=== PATIENT | female | born 1950 | race Caucasian/White ===

== ENCOUNTER 2016-10-27 08:00 | Outpatient (CLI) | payer BC ==
[2016-10-27 19:13] LABS: BASOPHILS # (AUTO) 0.1 10^3/uL (0.0-0.1); BASOPHILS % (AUTO) 0.9 %; EOSINOPHILS # (AUTO) 0.3 10^3/uL (0.0-0.7); EOSINOPHILS % (AUTO) 3.4 %; HCT - HEMATOCRIT 42.5 % (37.0-47.0); HGB - HEMOGLOBIN 13.8 g/dL (12.0-16.0); LYMPHOCYTES # (AUTO) 1.9 10^3/uL (1.5-3.5); LYMPHOCYTES % (AUTO) 22.9 %; MEAN CORPUSCULAR HEMOGLOBIN 28.4 pg (27.0-31.0); MEAN CORPUSCULAR HGB CONC 32.4 g/dL (32.0-36.0); MEAN CORPUSCULAR VOLUME 87.6 fL (81.0-99.0); MEAN PLATELET VOLUME 9.9 fL (7.9-10.8); MONOCYTES # (AUTO) 0.6 10^3/uL (0.0-1.0); NEUTROPHILS # (AUTO) 5.4 10^3/uL (1.5-6.6); NEUTROPHILS % (AUTO) 65.8 %; NUCLEATED RED BLOOD CELLS AUTO 0.1 /100WBC; RED BLOOD COUNT 4.86 10^6/uL (4.20-5.40); RED CELL DISTRIBUTION WIDTH 13.3 % (12.0-15.0); UNCORRECTED WHITE BLOOD COUNT 8.3 x10^3/uL; WHITE BLOOD COUNT 8.3 x10^3/uL (4.8-10.8)
[2016-10-27 19:50] LABS: ALBUMIN/GLOBULIN RATIO 1.3 (1.0-2.2); BILIRUBIN,TOTAL 0.3 mg/dL (0.2-1.0); BUN - BLOOD UREA NITROGEN 20 mg/dL (6-20); CALCIUM 9.6 mg/dL (8.5-10.3); CARBON DIOXIDE - CO2 29 mmol/L (21-32); CHLORIDE 103 mmol/L (101-111); CHOL/HDL RATIO 4.7 (<4.4); CHOLESTEROL 186 mg/dL; CREATININE 0.8 mg/dL (0.4-1.0); GFR - MDRD 72 (>89); GLUCOSE 90 mg/dL (70-100); HDL CHOLESTEROL 40 mg/dL; LDL/HDL RATIO 2.6 (<4.4); POTASSIUM 4.1 mmol/L (3.5-5.0); SODIUM 139 mmol/L (135-145); TOTAL PROTEIN 7.9 g/dL (6.7-8.2); TRIGLYCERIDES 222 mg/dL; VLDL CHOLESTEROL 44 mg/dL
[2016-10-27 20:15] LABS: HEMOGLOBIN A1C 0.6 g/dL
[2016-10-27 20:19] LABS: THYROID STIMULATING HORMONE 2.48 uIU/mL (0.34-5.60)
== END 2016-10-27 08:01 | disposition home or self-care (01) ==
LOC: LAB.WCP 08:00
PROVIDERS: ATTEND Family Medicine
DX: Z00.00 Encounter for general adult medical examination without abnormal findings (principal); E55.9 Vitamin D deficiency, unspecified; E03.9 Hypothyroidism, unspecified
CPT/HCPCS: 36415; 80053; 80061; 82306; 83036; 84439; 84443; 84481; 85025

== ENCOUNTER 2017-03-14 16:24 | Outpatient (CLI) | payer BC ==
[2017-03-14 19:10] LABS: BASOPHILS # (AUTO) 0.1 10^3/uL (0.0-0.1); BASOPHILS % (AUTO) 0.9 %; EOSINOPHILS # (AUTO) 0.3 10^3/uL (0.0-0.7); EOSINOPHILS % (AUTO) 3.7 %; HCT - HEMATOCRIT 41.4 % (37.0-47.0); HGB - HEMOGLOBIN 13.8 g/dL (12.0-16.0); LYMPHOCYTES # (AUTO) 1.9 10^3/uL (1.5-3.5); LYMPHOCYTES % (AUTO) 20.5 %; MEAN CORPUSCULAR HGB CONC 33.4 g/dL (32.0-36.0); MEAN CORPUSCULAR VOLUME 86.8 fL (81.0-99.0); MEAN PLATELET VOLUME 9.4 fL (7.9-10.8); MONOCYTES # (AUTO) 0.7 10^3/uL (0.0-1.0); NEUTROPHILS % (AUTO) 66.9 %; RED BLOOD COUNT 4.78 10^6/uL (4.20-5.40); RED CELL DISTRIBUTION WIDTH 13.2 % (12.0-15.0)
[2017-03-14 19:29] LABS: ALBUMIN/GLOBULIN RATIO 1.1 (1.0-2.2); BILIRUBIN,TOTAL 0.4 mg/dL (0.2-1.0); CALCIUM 9.4 mg/dL (8.5-10.3); CREATININE 0.7 mg/dL (0.4-1.0); POTASSIUM 4.1 mmol/L (3.5-5.0); TOTAL PROTEIN 8.1 g/dL (6.7-8.2)
[2017-03-14 19:41] LABS: THYROID STIMULATING HORMONE 0.38 uIU/mL (0.34-5.60)
== END 2017-03-14 16:25 | disposition home or self-care (01) ==
LOC: LAB.WCP 16:24
PROVIDERS: ATTEND Family Medicine
DX: R00.2 Palpitations (principal)
CPT/HCPCS: 36415; 80053; 84439; 84443; 84481; 85025

== ENCOUNTER 2017-06-03 09:31 | Outpatient (CLI) | payer BC | END 2017-06-03 09:32 | disposition home or self-care (01) | LOC: DI 09:31 | PROVIDERS: ATTEND Family Medicine | DX: R00.2 Palpitations (principal); I51.7 Cardiomegaly | CPT/HCPCS: 93306 ==

== ENCOUNTER 2018-01-02 15:57 | Outpatient (CLI) | payer BC | END 2018-01-02 15:58 | disposition home or self-care (01) | LOC: DI 15:57 | PROVIDERS: ATTEND Family Medicine | DX: Z53.9 Procedure and treatment not carried out, unspecified reason (principal) ==

== ENCOUNTER 2018-06-01 16:49 | Outpatient (CLI) | payer BC ==
--- NOTE | 2018-06-03 06:59 | Ultrasound Report ---
Reason: UTERINE PROLAPSE, ABDOMINAL PAIN Procedure Date: 06/01/2018 Accession Number: [id number] / [id number] Procedure: US - Abdomen Complete CPT Code: FULL RESULT: EXAM: ABDOMEN ULTRASOUND EXAM DATE: 06/01/2018 05:59 PM. CLINICAL HISTORY: Uterine prolapse, abdominal pain. COMPARISON: None. TECHNIQUE: Real-time scanning was performed with static images obtained. FINDINGS: Liver: Increased echotexture without gross focal lesion. 17.3 cm. Main portal vein flow: Hepatopetal. Gallbladder: Normal. No stones, wall thickening, or sonographic Miller's sign. Biliary System: Common bile duct measures 4 mm. No intrahepatic or extrahepatic ductal dilatation. Pancreas: Visualized portion is unremarkable but pancreas poorly seen. Kidneys: Right: 11.2 cm longitudinally. Normal. No contour-deforming mass, stones, or hydronephrosis. Left: 13 cm longitudinally. Normal. No contour-deforming mass, stones, or hydronephrosis. Spleen: 9.2 x 4.4 x 4.3 cm. Normal in size and echotexture. Aorta and Inferior Vena Cava: Unremarkable. Other: None. IMPRESSION: 1. No etiology for abdominal pain seen. 2. Fatty liver. RADIA
--- NOTE | 2018-06-03 06:59 | Ultrasound Report ---
Reason: UTERINE PROLAPSE, ABDOMINAL PAIN Procedure Date: 06/01/2018 Accession Number: [id number] / [id number] Procedure: US - Pelvic w/Transvaginal CPT Code: FULL RESULT: EXAM: PELVIC ULTRASOUND EXAM DATE: 06/01/2018 06:31 PM. CLINICAL HISTORY: Uterine prolapse, abdominal pain. COMPARISON: ABDOMEN COMPLETE 06/01/2018 5:59 PM. TECHNIQUE: Realtime transabdominal pelvic scan performed to identify the uterus and adnexa and as an overview of other pelvic structures, followed by transvaginal scan to provide greater detail of the uterus and adnexa, with static image documentation. FINDINGS: Uterus: 8.9 x 6.2 x 4.7 cm, volume 134.9 cc. Anteverted position. Normal overall size and echotexture. Masses: None. Endometrium: 6.9 mm. Mildly thickened endometrium for age. No discrete mass seen. Cervix: Unremarkable. Right Ovary: 2.4 x 1.5 x 1.9 cm, volume 3.6 cc. Normal echotexture and blood flow. Left Ovary: 2.8 x 2.5 x 1.8 cm, volume 6.6 cc. Normal echotexture and blood flow. Free Fluid: None. Other: None. IMPRESSION: 1. Mildly thickened 7 mm endometrium for patient's age and uncertain significance in the asymptomatic patient. No discrete endometrial mass seen. This could reflect early hyperplasia. Gynecologic followup suggested. 2. Otherwise unremarkable pelvic ultrasound. RADIA
== END 2018-06-01 16:50 | disposition home or self-care (01) ==
LOC: DI 16:49
PROVIDERS: ATTEND Family Medicine
DX: R93.89 Abnormal findings on diagnostic imaging of other specified body structures (principal); K76.0 Fatty (change of) liver, not elsewhere classified; R10.11 Right upper quadrant pain
CPT/HCPCS: 76700; 76830; 76856

== ENCOUNTER 2018-07-20 08:00 | Outpatient (CLI) | payer BC ==
[2018-07-20 19:11] LABS: BASOPHILS # (AUTO) 0.1 10^3/uL (0.0-0.1); BASOPHILS % (AUTO) 0.6 %; EOSINOPHILS # (AUTO) 0.3 10^3/uL (0.0-0.7); EOSINOPHILS % (AUTO) 3.7 %; HGB - HEMOGLOBIN 12.5 g/dL (12.0-16.0); LYMPHOCYTES # (AUTO) 1.7 10^3/uL (1.5-3.5); LYMPHOCYTES % (AUTO) 19.8 %; MEAN CORPUSCULAR HEMOGLOBIN 29.7 pg (27.0-31.0); MEAN CORPUSCULAR VOLUME 87.3 fL (81.0-99.0); MEAN PLATELET VOLUME 8.8 fL (7.9-10.8); MONOCYTES # (AUTO) 0.7 10^3/uL (0.0-1.0); MONOCYTES % (AUTO) 7.8 %; NEUTROPHILS # (AUTO) 5.8 10^3/uL (1.5-6.6); NEUTROPHILS % (AUTO) 68.1 %; PLT - PLATELET COUNT 302 10^3/uL (130-450); RED BLOOD COUNT 4.22 10^6/uL (4.20-5.40); RED CELL DISTRIBUTION WIDTH 13.5 % (12.0-15.0); WHITE BLOOD COUNT 8.5 x10^3/uL (4.8-10.8)
[2018-07-20 19:30] LABS: ALBUMIN 3.9 g/dL (3.2-5.5); BILIRUBIN,TOTAL 0.4 mg/dL (0.2-1.0); CALCIUM 9.2 mg/dL (8.5-10.3); CREATININE 0.7 mg/dL (0.4-1.0); TOTAL PROTEIN 7.7 g/dL (6.7-8.2)
[2018-07-20 19:42] LABS: THYROID STIMULATING HORMONE 0.63 uIU/mL (0.34-5.60)
[2018-07-20 19:43] LABS: FREE T4 (FREE THYROXINE) 1.16 ng/dL (0.58-1.64)
[2018-07-20 20:31] LABS: HB2 TOTAL 13.2 g/dL; HEMOGLOBIN A1C 0.53 g/dL; HEMOGLOBIN A1C % 5.8 % (4.6-6.2)
[2018-07-21 13:11] LABS: HEPATITIS C ANTIBODY NON-REACTIVE (NON-REACTIVE)
[2018-07-21 13:12] LABS: HEPATITIS B SURFACE ANTIGEN NON-REACTIVE (NON-REACTIVE)
== END 2018-07-20 23:59 | disposition home or self-care (01) ==
LOC: LAB.WCP 08:00
PROVIDERS: ATTEND Family Medicine
DX: R74.8 Abnormal levels of other serum enzymes (principal); E66.9 Obesity, unspecified; E03.9 Hypothyroidism, unspecified; R00.2 Palpitations
CPT/HCPCS: 36415; 80053; 80061; 83036; 83721; 84439; 84443; 84481; 85025; 86317; 86704; 86709; 86803; 87340

== ENCOUNTER 2019-02-03 17:35 | Emergency (ER) | payer BC ==
--- NOTE | 2019-02-03 17:53 | ED Physician Documentation ---
PD HPI CHEST PAIN - Stated complaint Stated Complaint: CP/NAUSEA/VERTIGO - Chief complaint Chief Complaint: Cardiac - History obtained from History obtained from: Patient - History of Present Illness Timing - onset: How many hours ago (1-2) Timing - onset during: Light activity Timing - duration: Hours Timing - details: Abrupt onset, Still present Quality: Sharp, Pain Location: Left chest, Left neck (She started actually with pain in the left side of the neck anteriorly associated with a feeling of dizziness and left facial numbness. The facial numbness improved. The neck pain traveled down into the left chest. It was not pleuritic. She denied any lightheadedness nor she near syncope. She had not had any similar prior episodes. There is no injury or abrupt motion at the time of the onset.) Radiation: No: Back, Abdominal Improved by: No: Rest Worsened by: No: Inspiration, Movement, Palpation Associated symptoms: Nausea. No: Shortness of air, Diaphoresis, Feeling faint / dizzy, Palpitations Similar symptoms before: Has not had sx before Recently seen: Not recently seen Review of Systems Constitutional: denies: Fever Nose: denies: Rhinorrhea / runny nose, Congestion Throat: denies: Sore throat Respiratory: denies: Cough GI: reports: Nausea. denies: Abdominal Pain, Vomiting, Diarrhea Musculoskeletal: denies: Back pain Neurologic: denies: Focal weakness, Near syncope, Headache PD PAST MEDICAL HISTORY - Past Medical History Past Medical History: Yes Cardiovascular: Deep vein thrombosis (years ago and Rx with Coumadin for 5 months and improved. ) Respiratory: None Neuro: None Endocrine/Autoimmune: HyPOthyroidism GI: None - Past Surgical History Past Surgical History: Yes - Allergies Allergies/Adverse Reactions: Allergies Allergy/AdvReac Type Severity Reaction Status Date / Time amoxicillin [From Augmentin] AdvReac Rash Verified 02/03/19 17:42 clavulanic acid AdvReac Rash Verified 02/03/19 17:42 [From Augmentin] - Social History Does the pt smoke?: No Smoking Status: Never smoker Does the pt drink ETOH?: Yes - Immunizations Immunizations are current?: Yes - POLST Patient has POLST: No PD ED PE NORMAL - Vitals Vital signs reviewed: Yes - General General: Alert and oriented X 3, No acute distress, Well developed/nourished - HEENT HEENT: PERRL, EOMI, Moist mucous membranes, Pharynx benign - Neck Neck: Supple, no meningeal sign, No adenopathy, No bruit - Cardiac Cardiac: RRR, No murmur - Respiratory Respiratory: Clear bilaterally - Abdomen Abdomen: Soft, Non tender - Back Back: No CVA TTP - Derm Derm: Normal color, Warm and dry - Extremities Extremities: No tenderness to palpate, Normal ROM s pain, No edema, No calf tenderness / cord - Neuro Neuro: Alert and oriented X 3, front office assistant 2-12 intact, No motor deficit, No sensory deficit, Normal speech Eye Opening: Spontaneous Motor: Obeys Commands Verbal: Oriented GCS Score: 15 Results - Vitals Vitals: Vital Signs - 24 hr 02/03/19 02/03/19 02/03/19 17:42 17:51 18:33 Temperature 36.8 C Heart Rate 72 76 71 Respiratory 15 12 12 Rate Blood Pressure 193/83 H 196/77 H 137/80 H O2 Saturation 100 100 97 02/03/19 02/03/19 02/03/19 19:45 21:00 22:06 Temperature 36.5 C Heart Rate 66 65 66 Respiratory 14 14 14 Rate Blood Pressure 152/82 H 139/66 H 124/82 H O2 Saturation 97 92 94 Oxygen O2 Source Room air - EKG (time done) 17:42 Rate: Rate (enter#) (72) Rhythm: NSR [place]: Normal Intervals: Normal LA QRS: Normal Ischemia: Normal ST segments. No: ST elevation c/w ischemia, ST depression - Labs Labs: Laboratory Tests 02/03/19 02/03/19 02/03/19 18:28 18:28 18:28 WBC 7.6 RBC 4.50 Hgb 12.7 Hct 40.1 MCV 89.1 MCH 28.2 MCHC 31.7 L RDW 13.5 Plt Count 253 MPV 10.4 Neut # (Auto) 5.3 Lymph # (Auto) 1.6 Pettis # (Auto) 0.4 Eos # (Auto) 0.2 Baso # (Auto) 0.0 Absolute Nucleated RBC 0.00 Nucleated RBC % 0.0 ESR 17 Sodium 141 Potassium 3.4 L Chloride 104 Carbon Dioxide 26 Anion Gap 11.0 BUN 19 Creatinine 0.8 Estimated GFR (MDRD) 72 L Glucose 165 H Calcium 9.1 Magnesium 2.3 Total Bilirubin 0.5 AST 22 ALT 23 Alkaline Phosphatase 91 Troponin I High Sens Total Protein 7.9 Albumin 4.1 Globulin 3.8 Albumin/Globulin Ratio 1.1 Lipase 26 TSH Thyroxine (T4) 02/03/19 02/03/19 18:28 18:28 WBC RBC Hgb Hct MCV MCH MCHC RDW Plt Count MPV Neut # (Auto) Lymph # (Auto) Pettis # (Auto) Eos # (Auto) Baso # (Auto) Absolute Nucleated RBC Nucleated RBC % ESR Sodium Potassium Chloride Carbon Dioxide Anion Gap BUN Creatinine Estimated GFR (MDRD) Glucose Calcium Magnesium Total Bilirubin AST ALT Alkaline Phosphatase Troponin I High Sens 3.9 Total Protein Albumin Globulin Albumin/Globulin Ratio Lipase TSH 1.82 Thyroxine (T4) 9.79 - Rads (name of study) chest and neck angio Radiology: Prelim report reviewed (The chest STEWART was normal without out any signs of dissection. Mild atelectatic changes noted in the bases. The neck and 0 portion showed clear internal carotid arteries. There was some beam hardening artifact in the vertebral areas so dissection could not be fully excluded in those spots.), Final report received, See rad report PD MEDICAL DECISION MAKING - ED course Complexity details: reviewed results, re-evaluated patient (Given the patient's pain in the anterior part of the neck down into the chest, I think the chest and neck angios results are adequate even though the vertebral vessels were not well visualized due to beam hardening and artifact. The patient's EKG and troponin are normal. Her sed rate is normal excluding vasculitis type concerns. There is no pulmonary component notable. At this point I feel it reasonable to say we have excluded significant processes. She is feeling better with out any real medicines for pain here. She appears stable for discharge.), considered differential, d/w patient Departure - Departure Disposition: 01 Home, Self Care Clinical Impression: Anterior neck pain Chest pain Qualifiers: Chest pain type: precordial pain Qualified Code(s): R07.2 - Precordial pain Condition: Stable Record reviewed to determine appropriate education?: Yes Instructions: ED Chest Pain Atypical Unkn Cause Follow-Up: Ava Sutton DO [Primary Care Provider] - Comments: Your EKG and troponin are normal. Your sed rate is normal as well. The CT the scan of the chest and neck did not show any acute vascular abnormalities nor other process to account for the pain. The neck portion of the angiogram has a reading of some technical limitations particularly in the vertebral arteries. The carotids appear to have been better visualized at the internal carotid. Th is seems adequate visualization given the location of your pain and in conjunction with a normal chest angiogram component. Presume possibly musculoskeletal pain or such. In particular no signs of more significant causes for your chest pain. Stay well-hydrated. Rest for a day. Use some anti-inflammatories such as ibuprofen or naproxen add Tylenol if needed for pains. Recheck if not better ov er the next day or 2. Discharge Date/Time: 02/03/19 22:11
[2019-02-03] MEDS ORDERED: SODIUM CHLORIDE 0.9% 1,000 ML IV ONE (18:20)
[2019-02-03] MEDS ORDERED: diphenhydrAMINE INJ 50 MG/ML VIAL IVP STA (18:26)
[2019-02-03 18:41] LABS: BASOPHILS % (AUTO) 0.4 %; EOSINOPHILS # (AUTO) 0.2 10^3/uL (0.0-0.7); EOSINOPHILS % (AUTO) 2.6 %; HGB - HEMOGLOBIN 12.7 g/dL (12.0-16.0); LYMPHOCYTES # (AUTO) 1.6 10^3/uL (1.5-3.5); LYMPHOCYTES % (AUTO) 21.4 %; MEAN CORPUSCULAR HEMOGLOBIN 28.2 pg (27.0-31.0); MEAN CORPUSCULAR HGB CONC 31.7 g/dL (32.0-36.0); MEAN CORPUSCULAR VOLUME 89.1 fL (81.0-99.0); MEAN PLATELET VOLUME 10.4 fL (7.9-10.8); MONOCYTES # (AUTO) 0.4 10^3/uL (0.0-1.0); MONOCYTES % (AUTO) 5.3 %; NEUTROPHILS # (AUTO) 5.3 10^3/uL (1.5-6.6); NEUTROPHILS % (AUTO) 69.9 %; PLT - PLATELET COUNT 253 10^3/uL (130-450); RED CELL DISTRIBUTION WIDTH 13.5 % (12.0-15.0); WHITE BLOOD COUNT 7.6 x10^3/uL (4.8-10.8)
--- NOTE | 2019-02-03 18:43 | XRAY Report ---
Reason: chest pain Procedure Date: 02/03/2019 Accession Number: [id number] / [id number] Procedure: XR - Chest 1 View X-Ray CPT Code: 25892 FULL RESULT: EXAM: CHEST RADIOGRAPHY EXAM DATE: 02/03/2019 06:19 PM. CLINICAL HISTORY: Chest pain. COMPARISON: None. TECHNIQUE: 1 view. FINDINGS: Lungs/Pleura: No focal opacities evident. No pleural effusion. No pneumothorax. Mediastinum: Within exam limitations, the cardiomediastinal contour is normal. Other: None. IMPRESSION: Normal single view chest. RADIA
[2019-02-03] MEDS ORDERED: IOVERSOL 320 100 ML VIAL IVP ONE (18:49)
[2019-02-03 18:51] LABS: ALBUMIN 4.1 g/dL (3.2-5.5); ALBUMIN/GLOBULIN RATIO 1.1 (1.0-2.2); BILIRUBIN,TOTAL 0.5 mg/dL (0.2-1.0); CALCIUM 9.1 mg/dL (8.5-10.3); CREATININE 0.8 mg/dL (0.4-1.0); MAGNESIUM 2.3 mg/dL (1.7-2.8); TOTAL PROTEIN 7.9 g/dL (6.7-8.2)
[2019-02-03 20:46] LABS: T4 (THYROXINE) 9.79 ug/dL (6.09-12.23)
--- NOTE | 2019-02-03 20:47 | CT Report ---
Reason: left chest to neck pain abruptly Procedure Date: 02/03/2019 Accession Number: [id number] / [id number] Procedure: CT - ANGIO CHEST W/WO CPT Code: FULL RESULT: EXAM: CT ANGIOGRAM CHEST WITH AND WITHOUT CONTRAST. EXAM DATE: 02/03/2019 07:47 PM. CLINICAL HISTORY: Left chest to neck pain abruptly. COMPARISON: ABDOMEN COMPLETE 06/01/2018 5:59 PM. PELVIC W/TRANSVAGINAL 06/01/2018 5:36 PM. TECHNIQUE: Routine helical imaging was performed through the chest without and with contrast in the arterial phase. IV Contrast: OPTI 320 100 mL. Reconstructions: Coronal 3-D MIP reconstructions.Sagittal and coronal. In accordance with CT protocol optimization, one or more of the following dose reduction techniques were utilized for this exam: automated exposure control, adjustment of mA and/or KV based on patient size, or use of iterative reconstructive technique. FINDINGS: Motion artifact limited. Mediastinum: No thoracic aortic aneurysm or dissection. Branches off the aortic arch appear patent. No mediastinal or hilar lymphadenopathy. Heart size is within normal limits. Upper abdomen: No acute findings are seen. Lungs: Bilateral dependent atelectasis and diffuse bilateral atelectasis suspected with low lung volumes. Right lower lobe anterior pulmonary nodule measuring 1 cm. Motion artifact limited. No pleural effusion or pneumothorax. No acute bone findings. IMPRESSION: 1. No thoracic aortic aneurysm or dissection. 2. Right lower lobe anterior pulmonary nodule measuring 1 cm. Further workup/follow-up is recommended. A PET CT scan could be obtained to further evaluate. 3. Bilateral dependent atelectasis and diffuse bilateral atelectasis suspected with low lung volumes. Motion artifact limited. RADIA
[2019-02-03 20:50] LABS: THYROID STIMULATING HORMONE 1.82 uIU/mL (0.34-5.60)
--- NOTE | 2019-02-03 21:07 | CT Report ---
Reason: L sided facial numbness, L neck pain Procedure Date: 02/03/2019 Accession Number: [id number] / [id number] Procedure: CT - ANGIO NECK W CPT Code: FULL RESULT: EXAM: CTA NECK. COMPARISON: CHEST ANGIO 02/03/2019 7:22 PM. CLINICAL HISTORY: Left-sided facial numbness, left neck pain. TECHNIQUE: Axial CT images were obtained through the neck during arterial phase after intravenous OPTI-320 100 mLiodinated contrast. 3 dimensional MIP reconstructions are created from axial data. Stenosis is measured by NASCET type criteria. In accordance with CT protocol optimization, one or more of the following dose reduction techniques were utilized for this exam: automated exposure control, adjustment of mA and/or KV based on patient size, or use of iterative reconstructive technique. FINDINGS: Evaluation of the chest CT angiogram portion of this study is dictated separately, although the images are acquired as a single volume. Visualized intracranial contents shows no discrete masses. Allowing for technique, no evident M1 or A1 occlusion is identified. No evident ICA occlusion intracranially is identified. Left vertebral artery is dominant. Intracranial vertebral arteries, particular the right, are not adequately evaluated. The artery is relatively unremarkable to its terminus. There is a near right FIRST ASSIST. Left P1, P2 and visualized distal segment showed no obvious abnormality. Distal right FIRST ASSIST shows no obvious abnormality, not well visualized on this study secondary to the large field of view and other technical factors. Neck CTA: Multilevel cervical spondylosis most notable at C6-C7. No retropharyngeal fluid. No high-grade bony canal stenosis. Visualized upper chest evaluation is deferred to CTA. Larynx is normal. Epiglottis is normal. Base of tongue is normal. No cervical adenopathy or masses are identified. Arterial structures: Right carotid artery: Right common carotid artery originates normally from the brachiocephalic, head is unremarkable to the bifurcation. Right internal carotid artery is unremarkable to the skull base. Left carotid artery: Left common carotid artery originates normally from the aortic arch, it is unremarkable to the bifurcation. Left internal carotid artery is unremarkable to the skull base. Notably, the proximal left common carotid artery is inadequate visualized (13, 250), secondary to motion and beam hardening artifact from contrast and flow. Posterior circulation: Left vertebral artery is dominant, originates normally from the left subclavian artery, inadequately visualized proximally secondary to motion and beam hardening artifact. Proximal dissection and stenosis are not excluded. Proximal right vertebral artery similarly is inadequately visualized, stenosis and dissection are not excluded. Distal right vertebral artery shows no evident abnormality, but poorly visualized at the level of the occlusal plane. IMPRESSION: Examination is technically limited, field of view is not optimal for evaluation of the neck, presumably related to combined chest and neck study. Proximal vertebral arteries are not adequately evaluated, secondary to beam hardening artifact and motion, proximal stenosis and dissection is excluded. No obvious intracranial arterial abnormality is identified, not adequately visualized secondary to technical limitations as described. The visualized extracranial arterial circulation shows no evident abnormality, stenosis and dissection are not excluded secondary to limitations described.
[2019-02-03] MEDS ORDERED: KETOROLAC 30 MG/ML VIAL IVP STA (21:57)
[2019-02-03 22:06] VITALS: BP 124/82
== END 2019-02-03 22:11 | disposition home or self-care (01) ==
LOC: ED 17:35
DX: M54.2 Cervicalgia (principal); R07.89 Other chest pain
CPT/HCPCS: 36415; 70498; 71045; 71275; 83690; 83735; 84436; 84484; 85651; 93005; 96361; 96374; 96375; 99284; J1200; Q9967; 80053; 84443; 85025

== ENCOUNTER 2019-05-30 13:39 | Outpatient (CLI) | payer BC ==
[2019-05-30 13:51] LABS: CREATININE 0.6 mg/dL (0.4-1.0)
[2019-05-30] MEDS ORDERED: IOVERSOL 320 100 ML VIAL IVP ONE (13:53)
[2019-05-30 16:10] LABS: FREE T4 (FREE THYROXINE) 0.75 ng/dL (0.58-1.64)
[2019-05-30] MEDS: IOVERSOL 320 100 ML VIAL IVP ONE (17:04)
--- NOTE | 2019-05-31 11:50 | CT Report ---
Reason: ATYP CHEST PAIN PULMONARY NODULE Procedure Date: 05/30/2019 Accession Number: [id number] / [id number] Procedure: CT - CHEST W CPT Code: Final Report FULL RESULT: EXAM: CT CHEST EXAM DATE: 05/30/2019 02:25 PM. CLINICAL HISTORY: Atypical chest pain pulmonary nodule. COMPARISONS: CHEST ANGIO 02/03/2019 7:22 PM. TECHNIQUE: Routine helical CT imaging was performed through the chest. IV contrast: 80 mL Optiray 320. Reconstructions: Coronal and sagittal. In accordance with CT protocol optimization, one or more of the following dose reduction techniques were utilized for this exam: automated exposure control, adjustment of mA and/or KV based on patient size, or use of iterative reconstructive technique. FINDINGS: Lungs/Pleura: There is scattered pulmonary nodules many 3 mm or less, most of which demonstrate calcifications, prior granulomatous disease. The previously seen 0.9 cm right lower lobe nodule perifissurally appears essentially unchanged on image 197 series 4. No bronchial thickening, consolidation, or edema. Pulmonary vasculature is normal. No pericardial or pleural effusion. No pneumothorax. Mediastinum: Normal. No adenopathy or masses. The heart and great vessels are normal. Bones: Unremarkable. Visualized Abdomen: Unremarkable. Other: None. IMPRESSION: Persistence of previously seen 0.9 cm right lower lobe nodule without significant interval change. Recommend characterization by PET CT or six-month follow-up CT. RADIA
== END 2019-05-30 13:40 | disposition home or self-care (01) ==
LOC: DI 13:39
PROVIDERS: ATTEND Family Medicine
DX: R91.1 Solitary pulmonary nodule (principal); R07.89 Other chest pain; E03.9 Hypothyroidism, unspecified
CPT/HCPCS: 36415; 71260; 82565; 84439; 84443; Q9967

== ENCOUNTER 2019-08-31 10:20 | Outpatient (CLI) | payer BC ==
[2019-08-31 10:36] LABS: BASOPHILS # (AUTO) 0.1 10^3/uL (0.0-0.1); BASOPHILS % (AUTO) 0.9 %; EOSINOPHILS # (AUTO) 0.2 10^3/uL (0.0-0.7); EOSINOPHILS % (AUTO) 3.1 %; HGB - HEMOGLOBIN 14.2 g/dL (12.0-16.0); LYMPHOCYTES # (AUTO) 1.3 10^3/uL (1.5-3.5); LYMPHOCYTES % (AUTO) 20.2 %; MEAN CORPUSCULAR HGB CONC 32.6 g/dL (32.0-36.0); MEAN CORPUSCULAR VOLUME 89.2 fL (81.0-99.0); MEAN PLATELET VOLUME 10.5 fL (7.9-10.8); MONOCYTES # (AUTO) 0.5 10^3/uL (0.0-1.0); MONOCYTES % (AUTO) 8.2 %; NEUTROPHILS # (AUTO) 4.3 10^3/uL (1.5-6.6); NEUTROPHILS % (AUTO) 67.3 %; PLT - PLATELET COUNT 259 10^3/uL (130-450); RED BLOOD COUNT 4.89 10^6/uL (4.20-5.40); RED CELL DISTRIBUTION WIDTH 13.8 % (12.0-15.0); WHITE BLOOD COUNT 6.4 x10^3/uL (4.8-10.8)
[2019-08-31 10:54] LABS: ALBUMIN 4.3 g/dL (3.2-5.5); ALBUMIN/GLOBULIN RATIO 1.2 (1.0-2.2); ALKALINE PHOSPHATASE 80 IU/L (42-121); ALT ALANINE AMINOTRANSFERASE 24 IU/L (10-60); AST ASPARTATE AMINOTRANSFERASE 20 IU/L (10-42); BILIRUBIN,TOTAL 0.5 mg/dL (0.2-1.0); BUN - BLOOD UREA NITROGEN 13 mg/dL (6-20); CARBON DIOXIDE - CO2 27 mmol/L (21-32); CHLORIDE 104 mmol/L (101-111); CHOL/HDL RATIO 3.9 (<4.4); CHOLESTEROL 156 mg/dL; CREATININE 0.6 mg/dL (0.4-1.0); GFR - MDRD 100 (>89); GLUCOSE 105 mg/dL (70-100); HDL CHOLESTEROL 40 mg/dL; LDL CHOLESTEROL,CALCULATED 103 mg/dL; LDL/HDL RATIO 2.6 (<4.4); SODIUM 138 mmol/L (135-145); TOTAL PROTEIN 7.9 g/dL (6.7-8.2); VLDL CHOLESTEROL 13 mg/dL
[2019-08-31 11:06] LABS: THYROID STIMULATING HORMONE 3.58 uIU/mL (0.34-5.60)
[2019-08-31 11:08] LABS: FREE T4 (FREE THYROXINE) 0.83 ng/dL (0.58-1.64)
== END 2019-08-31 10:21 | disposition home or self-care (01) ==
LOC: LAB 10:20
PROVIDERS: ATTEND Family Medicine
DX: Z00.00 Encounter for general adult medical examination without abnormal findings (principal); E03.9 Hypothyroidism, unspecified; R74.8 Abnormal levels of other serum enzymes
CPT/HCPCS: 36415; 80053; 80061; 83721; 84439; 84443; 84481; 85025

== ENCOUNTER 2019-09-10 17:41 | Outpatient (CLI) | payer BC | END 2019-09-10 17:42 | disposition home or self-care (01) | LOC: COV 17:41 | PROVIDERS: ATTEND Family Medicine | DX: R05 Cough (principal); R50.9 Fever, unspecified | CPT/HCPCS: 81599 ==

== ENCOUNTER 2019-11-22 11:30 | Outpatient (CLI) | payer BC ==
[2019-11-22] MEDS ORDERED: IOVERSOL 320 100 ML VIAL IVP ONE (11:43)
[2019-11-22] MEDS ORDERED: IOVERSOL 320 50 ML VIAL ONE (11:43)
[2019-11-22 12:05] LABS: BASOPHILS # (AUTO) 0.1 10^3/uL (0.0-0.1); BASOPHILS % (AUTO) 0.7 %; EOSINOPHILS # (AUTO) 0.9 10^3/uL (0.0-0.7); EOSINOPHILS % (AUTO) 9.7 %; HGB - HEMOGLOBIN 13.3 g/dL (12.0-16.0); LYMPHOCYTES # (AUTO) 1.4 10^3/uL (1.5-3.5); LYMPHOCYTES % (AUTO) 16.3 %; MEAN CORPUSCULAR HGB CONC 32.5 g/dL (32.0-36.0); MEAN CORPUSCULAR VOLUME 89.3 fL (81.0-99.0); MEAN PLATELET VOLUME 10.2 fL (7.9-10.8); MONOCYTES # (AUTO) 0.7 10^3/uL (0.0-1.0); MONOCYTES % (AUTO) 7.4 %; NEUTROPHILS # (AUTO) 5.8 10^3/uL (1.5-6.6); NEUTROPHILS % (AUTO) 65.7 %; PLT - PLATELET COUNT 269 10^3/uL (130-450); RED BLOOD COUNT 4.58 10^6/uL (4.20-5.40); RED CELL DISTRIBUTION WIDTH 13.9 % (12.0-15.0); WHITE BLOOD COUNT 8.9 x10^3/uL (4.8-10.8)
[2019-11-22 12:25] LABS: ALBUMIN 4.2 g/dL (3.2-5.5); ALBUMIN/GLOBULIN RATIO 1.1 (1.0-2.2); BILIRUBIN,TOTAL 0.4 mg/dL (0.2-1.0); CALCIUM 9.2 mg/dL (8.5-10.3); CREATININE 0.6 mg/dL (0.4-1.0); CRP - C-REACTIVE PROTEIN 3.9 mg/dL (0-1.0); TOTAL PROTEIN 8.1 g/dL (6.7-8.2)
[2019-11-22 12:40] LABS: RHEUMATOID FACTOR NEGATIVE (Negative)
[2019-11-22] MEDS: IOVERSOL 320 100 ML VIAL IVP ONE (13:17)
[2019-11-22] MEDS: IOVERSOL 320 50 ML VIAL PO ONE (13:17)
--- NOTE | 2019-11-22 13:32 | CT Report ---
Reason: ABDOMINAL PAIN LLQ Procedure Date: 11/22/2019 Accession Number: [id number] / [id number] Procedure: CT - Abdomen/Pelvis W CPT Code: Final Report FULL RESULT: PROCEDURE: Abdomen/Pelvis W INDICATIONS: ABDOMINAL PAIN LLQ CONTRAST: IV CONTRAST: Optiray 320 ml: 100 PO CONTRAST: Optiray 320 ml50 TECHNIQUE: After the administration of oral and intravenous contrast, 5 mm thick sections acquired from the diaphragms to the symphysis. 5 mm thick coronal and sagittal reformats were acquired. For radiation dose reduction, the following was used: automated exposure control, adjustment of mA and/or kV according to patient size. COMPARISON: CT of chest dated 05/30/2019. FINDINGS: Image quality: Excellent. ABDOMEN: Lung bases: Bibasilar scattered scarring/atelectasis is seen. Heart size is normal. Solid organs: Liver and spleen are normal in size and enhancement. Gallbladder is within normal limits Biliary system is non dilated. Pancreas enhances normally. No adrenal nodules. Kidneys demonstrate normal size and enhancement, without hydronephrosis. Left renal cysts are seen including a exophytic cyst measures 8 mm in size in lower pole of left kidney. Peritoneum and bowel: There is no evidence of bowel obstruction. No gastric or small bowel wall thickening. Descending and sigmoid: diverticulosis is seen with focal area of wall thickening and narrowing of the lumen involving proximal sigmoid colon in left lower quadrant and pericolonic fat stranding consistent with acute diverticulitis. There is no abscess collection. No peritoneal free fluid or free air. Nodes and vessels: No retroperitoneal or mesenteric adenopathy by size criteria. Aorta and inferior vena cava are normal in size. Miscellaneous: No ventral hernias. PELVIS: Genitourinary: Bladder wall thickness is normal. Miscellaneous: No inguinal hernias or adenopathy. Bones: No suspicious bony lesions. No vertebral body compression fractures. Degenerative disc disease in lower lumbar spine is seen most prominent at L5-S1 level. IMPRESSION: 1. Findings consistent with acute diverticulitis involving distal descending colon/proximal sigmoid colon in left lower quadrant. No abscess collection. No evidence of perforation. No free fluid or free air. 2. Small left renal cysts as above. No renal stone or hydronephrosis. Reviewed by: Jose Root MD on 11/22/2019 1:31 PM PDT Approved by: Jose Root MD on 11/22/2019 1:31 PM PDT Station ID: [id number]
--- NOTE | 2019-11-22 14:26 | XRAY Report ---
Reason: WRIST PAIN RIGHT AND LEFT Procedure Date: 11/22/2019 Accession Number: [id number] / [id number] Procedure: XR - Wrist 2 View BILAT CPT Code: Final Report FULL RESULT: PROCEDURE: Wrist 2 View BILAT INDICATIONS: WRIST PAIN RIGHT AND LEFT TECHNIQUE: 4 views of the wrist were acquired. COMPARISON: None FINDINGS: Bones: Moderate osteoarthritic changes are noted throughout bilateral wrist joints particularly involving bilateral CMC joints slightly worse on the left side. No fractures or dislocations. No definite bony erosion is seen. No suspicious bony lesions. Scaphoid view: Bilateral scaphoids are grossly intact. Soft tissues: No suspicious soft tissue calcifications. 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 No fracture or dislocation. No definite bony erosion. Reviewed by: Jose Root MD on 11/22/2019 2:25 PM PDT Approved by: Jose Root MD on 11/22/2019 2:25 PM PDT Station ID: [id number]
== END 2019-11-22 11:31 | disposition home or self-care (01) ==
LOC: LAB 11:30
PROVIDERS: ATTEND Family Medicine
DX: R10.32 Left lower quadrant pain (principal); M19.032 Primary osteoarthritis, left wrist; M19.031 Primary osteoarthritis, right wrist; E03.9 Hypothyroidism, unspecified
CPT/HCPCS: 36415; 73100; 74177; 85651; 86140; 86200; 86430; Q9967; 80053; 84443; 85025

== ENCOUNTER 2020-01-29 17:18 | Outpatient (CLI) | payer BC ==
[2020-01-29 18:16] LABS: CREATININE 0.6 mg/dL (0.4-1.0)
[2020-01-29] MEDS ORDERED: IOVERSOL 320 100 ML VIAL IVP ONE ×2 (18:36→20:08)
--- NOTE | 2020-01-30 12:52 | CT Report ---
PROCEDURE: CHEST W INDICATIONS: PULMONARY NODULE CONTRAST: IV CONTRAST: Optiray 320 ml: 100 PO CONTRAST: *NO PO CONTRAST TECHNIQUE: After the administration of intravenous contrast, 5 mm thick sections acquired from the pulmonary api lui to the posterior costophrenic angles. 7 mm thick coronal MIP reformats were acquired. For radia tion dose reduction, the following was used: automated exposure control, adjustment of mA and/or kV according to patient size. COMPARISON: CT abdomen pelvis 11/22/2019, CT Chest 05/30/19 FINDINGS: Image quality: Excellent. Lungs and pleura: No acute air space opacities. No pleural effusions or pneumothorax. Central and peripheral airways are patent and normal in caliber. 3 mm calcified right upper lobe and 10 mm nodul e adjacent to the right major fissure, unchanged. Mediastinum: Heart size is normal. No pericardial effusion. No mediastinal or hilar adenopathy by size criteria. Thoracic aorta and central pulmonary arteries are normal in size. Esophagus is vick l in caliber. Mild hiatal hernia. Bones and chest wall: No suspicious bony lesions. No vertebral body compression fractures. No axil linus or supraclavicular adenopathy by size criteria. Thyroid gland is unremarkable. Abdomen: Visualized upper abdominal solid organs appear normal. Upper abdominal bowel loops are nor mal in caliber. IMPRESSION: Unchanged pulmonary nodules the largest measuring 10 mm. Recommend continued interval follow-up as be low. Fleischner Society criteria for SOLID lung nodule followup. Nodule size (mm) * <6 * Low-risk patient: No follow-up needed * High-risk patient: Optional CT at 12 months; if no change, no further follow-up * 6-8 * Low-risk patient: Initial follow-up CT at 6-12 months, then optional CT at 18-24 months. * High-risk patient: Initial follow-up CT at CT at 6-[address] 18-24 months. * >8 single nodule * Low-risk patient: CT, PET or biopsy at 3 months. * High-risk patient: Same as for low-risk pts. * >8 multiple nodules * Low-risk patient: CT at 3-6 months, then optional CT at 18-24 months * High-risk patient: CT at 3-6 months, then CT at 18-24 months Reviewed by: Yenny Rubio MD on 01/30/2020 12:51 PM PDT Approved by: Yenny Rubio MD on 01/30/2020 12:51 PM PDT Station ID: [id number]
== END 2020-01-29 17:19 | disposition home or self-care (01) ==
LOC: LAB 17:18
PROVIDERS: ATTEND Family Medicine
DX: R91.8 Other nonspecific abnormal finding of lung field (principal)
CPT/HCPCS: 36415; 71260; 82565; Q9967

== ENCOUNTER 2020-05-07 09:23 | Emergency (ER) | payer BC ==
--- NOTE | 2020-05-07 10:13 | ED Physician Documentation ---
History of Present Illness - Stated complaint Stated Complaint: RT GROIN PX - Chief complaint Chief Complaint: General - History obtained from History obtained from: Patient - Additonal information Additional information: 69-year-old female with history of DVT/PE x1 about 15 years ago presents with right groin pain starting today and concern for recurrent DVT. Pain is sharp, very focal in the right leg from the groin down into the thigh on both sides. No swelling. Review of Systems Constitutional: denies: Fever, Chills Cardiac: denies: Chest pain / pressure, Palpitations Respiratory: reports: Dyspnea (For few weeks that she attributes to environmental allergens) GI: denies: Abdominal Pain Musculoskeletal: denies: Neck pain, Back pain PD PAST MEDICAL HISTORY - Past Medical History Cardiovascular: Deep vein thrombosis Respiratory: None Neuro: None Endocrine/Autoimmune: HyPOthyroidism GI: None - Past Surgical History Past Surgical History: Yes - Present Medications Home Medications: Ambulatory Orders Medication Instructions Recorded Confirmed Albuterol Sulf [Ventolin Hfa 0 puffs PRN 05/07/20 Inhaler] - Allergies Allergies/Adverse Reactions: Allergies Allergy/AdvReac Type Severity Reaction Status Date / Time erythromycin base Allergy Unknown Verified 05/07/20 10:03 amoxicillin [From Augmentin] AdvReac Rash Verified 05/07/20 10:03 clavulanic acid AdvReac Rash Verified 05/07/20 10:03 [From Augmentin] - Social History Does the pt smoke?: No Smoking Status: Never smoker Does the pt drink ETOH?: Yes - Immunizations Immunizations are current?: Yes - POLST Patient has POLST: No PD ED PE NORMAL - Vitals Vital signs reviewed: Yes - General General: Alert and oriented X 3, No acute distress - HEENT HEENT: PERRL, EOMI - Neck Neck: Supple, no meningeal sign, No bony TTP - Extremities Extremities: Other (Focal tenderness in the right medial groin with excellent femoral pulses, no discoloration or cellulitis. Calves are nontender and symmetric.) - Neuro Neuro: Alert and oriented X 3, Normal speech Results - Vitals Vitals: Vital Signs - 24 hr 05/07/20 09:37 Temperature 36.1 C L Heart Rate 90 Respiratory 18 Rate Blood Pressure 191/83 H O2 Saturation 99 Oxygen O2 Source Room air - Labs Labs: Laboratory Tests 05/07/20 05/07/20 10:29 10:29 WBC 5.1 RBC 4.63 Hgb 13.6 Hct 41.2 MCV 89.0 MCH 29.4 MCHC 33.0 RDW 13.1 Plt Count 240 MPV 10.1 Neut # (Auto) 3.2 Lymph # (Auto) 1.2 L [place] # (Auto) 0.5 Eos # (Auto) 0.2 Baso # (Auto) 0.1 Absolute Nucleated RBC 0.00 Nucleated RBC % 0.0 Sodium 139 Potassium 4.1 Chloride 105 Carbon Dioxide 26 Anion Gap 8.0 BUN 19 Creatinine 0.6 Estimated GFR (MDRD) 100 Glucose 100 Calcium 9.0 - Rads (name of study) DVT sono Radiology: EMP read contemporaneously (no dvt) PD MEDICAL DECISION MAKING - ED course ED course: 69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 Departure - Departure Disposition: 01 Home, Self Care Clinical Impression: Rt groin pain Condition: Good Record reviewed to determine appropriate education?: Yes Instructions: ED Acute Pain [facility] Comments: Return anytime for new or worsening symptoms, rest assured labs and ultrasound showed no significant acute pathology. Blood pressure here was fairly high, follow-up with your primary care physician in a week for recheck.
[2020-05-07 10:34] LABS: BASOPHILS # (AUTO) 0.1 10^3/uL (0.0-0.1); EOSINOPHILS # (AUTO) 0.2 10^3/uL (0.0-0.7); EOSINOPHILS % (AUTO) 2.9 %; HGB - HEMOGLOBIN 13.6 g/dL (12.0-16.0); LYMPHOCYTES # (AUTO) 1.2 10^3/uL (1.5-3.5); LYMPHOCYTES % (AUTO) 23.6 %; MEAN CORPUSCULAR HEMOGLOBIN 29.4 pg (27.0-31.0); MEAN PLATELET VOLUME 10.1 fL (7.9-10.8); MONOCYTES # (AUTO) 0.5 10^3/uL (0.0-1.0); MONOCYTES % (AUTO) 10.2 %; NEUTROPHILS # (AUTO) 3.2 10^3/uL (1.5-6.6); NEUTROPHILS % (AUTO) 62.1 %; PLT - PLATELET COUNT 240 10^3/uL (130-450); RED BLOOD COUNT 4.63 10^6/uL (4.20-5.40); RED CELL DISTRIBUTION WIDTH 13.1 % (12.0-15.0); WHITE BLOOD COUNT 5.1 x10^3/uL (4.8-10.8)
[2020-05-07 10:45] LABS: CREATININE 0.6 mg/dL (0.4-1.0)
--- NOTE | 2020-05-07 11:04 | Ultrasound Report ---
PROCEDURE: Duplex Ext Veins Right INDICATIONS: RLE pain TECHNIQUE: Real-time imaging, as well as color and pulse Doppler interrogation, were performed of the lower extr emity deep veins from the inguinal ligament to the popliteal fossa. COMPARISON: None. FINDINGS: The deep veins are normally compressible, and free of intraluminal thrombus. Color and pu lse Doppler demonstrate normal phasic intraluminal flow. There is normal augmentation response to di stal compression maneuver. IMPRESSION: 1. No DVT in the right lower extremity. 2. Preliminary results given by the technologist to the ordering provider. Reviewed by: Christina Hatfield MD on 05/07/2020 11:02 AM PST Approved by: Christina Hatfield MD on 05/07/2020 11:02 AM PST Station ID: [id number]
[2020-05-07 11:09] VITALS: BP 182/95
== END 2020-05-07 11:19 | disposition home or self-care (01) ==
LOC: ED 09:23
DX: R10.9 Unspecified abdominal pain (principal); M79.651 Pain in right thigh; M79.652 Pain in left thigh; Z86.718 Personal history of other venous thrombosis and embolism; R03.0 Elevated blood-pressure reading, without diagnosis of hypertension
CPT/HCPCS: 36415; 80048; 85025; 99283; 99284

== ENCOUNTER 2020-05-30 09:04 | Outpatient (CLI) | payer BC ==
[2020-05-30 09:51] LABS: BASOPHILS # (AUTO) 0.1 10^3/uL (0.0-0.1); EOSINOPHILS # (AUTO) 0.2 10^3/uL (0.0-0.7); EOSINOPHILS % (AUTO) 3.6 %; HGB - HEMOGLOBIN 13.5 g/dL (12.0-16.0); LYMPHOCYTES # (AUTO) 1.4 10^3/uL (1.5-3.5); LYMPHOCYTES % (AUTO) 23.2 %; MEAN CORPUSCULAR HEMOGLOBIN 28.8 pg (27.0-31.0); MEAN CORPUSCULAR HGB CONC 32.3 g/dL (32.0-36.0); MEAN CORPUSCULAR VOLUME 89.1 fL (81.0-99.0); MEAN PLATELET VOLUME 10.5 fL (7.9-10.8); MONOCYTES # (AUTO) 0.5 10^3/uL (0.0-1.0); MONOCYTES % (AUTO) 8.4 %; NEUTROPHILS # (AUTO) 3.9 10^3/uL (1.5-6.6); NEUTROPHILS % (AUTO) 63.5 %; PLT - PLATELET COUNT 252 10^3/uL (130-450); RED BLOOD COUNT 4.69 10^6/uL (4.20-5.40); RED CELL DISTRIBUTION WIDTH 13.2 % (12.0-15.0); WHITE BLOOD COUNT 6.2 x10^3/uL (4.8-10.8)
[2020-05-30 10:09] LABS: ALBUMIN 4.2 g/dL (3.2-5.5); ALBUMIN/GLOBULIN RATIO 1.2 (1.0-2.2); ALKALINE PHOSPHATASE 85 IU/L (42-121); ALT ALANINE AMINOTRANSFERASE 25 IU/L (10-60); AST ASPARTATE AMINOTRANSFERASE 19 IU/L (10-42); BILIRUBIN,TOTAL 0.5 mg/dL (0.2-1.0); BUN - BLOOD UREA NITROGEN 18 mg/dL (6-20); CALCIUM 9.2 mg/dL (8.5-10.3); CARBON DIOXIDE - CO2 27 mmol/L (21-32); CHLORIDE 106 mmol/L (101-111); CHOL/HDL RATIO 3.6 (<4.4); CHOLESTEROL 153 mg/dL; CREATININE 0.6 mg/dL (0.4-1.0); GLUCOSE 104 mg/dL (70-100); HDL CHOLESTEROL 42 mg/dL; LDL CHOLESTEROL,CALCULATED 102 mg/dL; LDL/HDL RATIO 2.4 (<4.4); SODIUM 141 mmol/L (135-145); TOTAL PROTEIN 7.8 g/dL (6.7-8.2); VLDL CHOLESTEROL 9 mg/dL
--- NOTE | 2020-05-30 11:35 | XRAY Report ---
PROCEDURE: Shoulder 2 View BILAT INDICATIONS: BILATERAL SHOULDER PAIN TECHNIQUE: 2 views of the each shoulder were acquired. COMPARISON: CT chest 01/29/2020. FINDINGS: Bones: No fractures or dislocations. No suspicious bony lesions. Visualized ribs appear intact. Mi ld to moderate degenerative change of the right acromioclavicular joint is appreciated. Mild degenera tive change of the left AC joint. Soft tissues: No suspicious soft tissue calcifications. IMPRESSION: Mild to moderate right and mild left AC joint degenerative change is appreciated. Reviewed by: Jaime Quijano MD on 05/30/2020 10:33 AM [facility] Approved by: Jaime Quijano MD on 05/30/2020 10:33 AM [facility] Station ID: [id number]
== END 2020-05-30 09:05 | disposition home or self-care (01) ==
LOC: DI 09:04
PROVIDERS: ATTEND Family Medicine
DX: M19.012 Primary osteoarthritis, left shoulder (principal); M19.011 Primary osteoarthritis, right shoulder; R03.0 Elevated blood-pressure reading, without diagnosis of hypertension; E03.9 Hypothyroidism, unspecified
CPT/HCPCS: 36415; 80053; 80061; 83721; 84443; 85025

== ENCOUNTER 2020-06-30 08:00 | Outpatient (CLI) | payer BC ==
[2020-06-30 12:41] LABS: BASOPHILS # (AUTO) 0.1 10^3/uL (0.0-0.1); EOSINOPHILS # (AUTO) 0.2 10^3/uL (0.0-0.7); EOSINOPHILS % (AUTO) 3.4 %; HGB - HEMOGLOBIN 13.3 g/dL (12.0-16.0); LYMPHOCYTES # (AUTO) 1.4 10^3/uL (1.5-3.5); LYMPHOCYTES % (AUTO) 22.7 %; MEAN CORPUSCULAR HEMOGLOBIN 28.2 pg (27.0-31.0); MEAN CORPUSCULAR HGB CONC 31.7 g/dL (32.0-36.0); MEAN CORPUSCULAR VOLUME 89.2 fL (81.0-99.0); MEAN PLATELET VOLUME 10.8 fL (7.9-10.8); MONOCYTES # (AUTO) 0.6 10^3/uL (0.0-1.0); MONOCYTES % (AUTO) 9.3 %; NEUTROPHILS # (AUTO) 3.8 10^3/uL (1.5-6.6); NEUTROPHILS % (AUTO) 63.3 %; PLT - PLATELET COUNT 279 10^3/uL (130-450); RED BLOOD COUNT 4.71 10^6/uL (4.20-5.40); RED CELL DISTRIBUTION WIDTH 13.3 % (12.0-15.0); WHITE BLOOD COUNT 5.9 x10^3/uL (4.8-10.8)
[2020-06-30 13:01] LABS: URIC ACID 6.1 mg/dL (2.6-7.2)
[2020-06-30 13:33] LABS: CRP - C-REACTIVE PROTEIN < 1.0 mg/dL (0-1.0)
[2020-06-30 13:39] LABS: RHEUMATOID FACTOR NEGATIVE (Negative)
[2020-07-02 13:06] LABS: ANA SCREEN NEGATIVE (NEGATIVE)
[2020-07-02 14:07] LABS: DNA (DS) ANTIBODY <1 IU/mL
[2020-07-02 20:17] LABS: CYCLIC CITRULL PEPTIDE CCP IGG 19 UNITS
== END 2020-06-30 23:59 | disposition home or self-care (01) ==
LOC: LAB.N 08:00
PROVIDERS: ATTEND Family Medicine
DX: M25.572 Pain in left ankle and joints of left foot (principal)
CPT/HCPCS: 36415; 84550; 85025; 85651; 86038; 86140; 86200; 86225; 86430

== ENCOUNTER 2020-09-06 07:00 | Outpatient (CLI) | payer BC, MEDICARE | END 2020-09-06 23:59 | disposition home or self-care (01) | LOC: LAB.N 07:00 | PROVIDERS: ATTEND Physician Assistant Medical | DX: N30.00 Acute cystitis without hematuria (principal) | CPT/HCPCS: 87077; 87086; 87181 ==

== ENCOUNTER 2020-09-21 08:00 | Outpatient (CLI) | payer BC, MEDICARE | END 2020-09-21 23:59 | disposition home or self-care (01) | LOC: LAB.N 08:00 | PROVIDERS: ATTEND Nurse Practitioner | DX: R39.9 Unspecified symptoms and signs involving the genitourinary system (principal) | CPT/HCPCS: 87086 ==

== ENCOUNTER 2020-12-10 17:14 | Outpatient (CLI) | payer BC, MEDICARE ==
--- NOTE | 2020-12-11 10:10 | XRAY Report ---
PROCEDURE: Dominant INDICATIONS: CERVICALGIA TECHNIQUE: 3 view(s) of the cervical spine were acquired. COMPARISON: None FINDINGS: Bones: No fractures or dislocations to the T1 level. The lateral masses of C1 appear intact on the odontoid view. No suspicious bony lesions. Soft tissues: No prevertebral soft tissue swelling. IMPRESSION: There is a mild to moderate degree of degenerative disc disease at C4-C5 and C5-C6. At C 6-7 there is moderately severe degenerative disc disease. Mild facet osteoarthritis of superimposed, right greater than left, at the mid cervical spine. Reviewed by: Satish Reid MD on 12/11/2020 10:09 AM PDT Approved by: Satish Reid MD on 12/11/2020 10:09 AM PDT Station ID: [id number]
== END 2020-12-10 23:59 | disposition home or self-care (01) ==
LOC: DI.N 17:14
PROVIDERS: ATTEND Physician Assistant Medical
DX: M50.321 Other cervical disc degeneration at C4-C5 level (principal); M47.812 Spondylosis without myelopathy or radiculopathy, cervical region

== ENCOUNTER 2021-03-06 07:00 | Outpatient (CLI) | payer MEDICARE, BC | END 2021-03-06 23:59 | disposition home or self-care (01) | LOC: LAB.N 07:00 | PROVIDERS: ATTEND Physician Assistant Medical | DX: E03.9 Hypothyroidism, unspecified (principal) | CPT/HCPCS: 36415; 84443 ==

== ENCOUNTER 2021-08-12 13:27 | Outpatient (CLI) | payer MEDICARE, BC ==
[2021-08-12 13:54] LABS: ESTIMATED AVERAGE GLUCOSE 117 mg/dL (70-100); HEMOGLOBIN A1c% 5.7 % (4.27-6.07)
[2021-08-12 13:57] LABS: ALBUMIN 4.3 g/dL (3.2-5.5); ALBUMIN/GLOBULIN RATIO 1.3 (1.0-2.2); BILIRUBIN,TOTAL 0.4 mg/dL (0.2-1.0); CALCIUM 9.3 mg/dL (8.5-10.3); CREATININE 0.6 mg/dL (0.4-1.0); POTASSIUM 4.2 mmol/L (3.5-5.0); TOTAL PROTEIN 7.7 g/dL (6.7-8.2)
[2021-08-12 14:13] LABS: THYROID STIMULATING HORMONE 8.59 uIU/mL (0.34-5.60)
[2021-08-12 14:51] LABS: FREE T4 (FREE THYROXINE) 0.75 ng/dL (0.58-1.64)
== END 2021-08-12 13:28 | disposition home or self-care (01) ==
LOC: LAB 13:27
PROVIDERS: ATTEND Family Medicine
DX: M25.511 Pain in right shoulder (principal); M25.512 Pain in left shoulder; R03.0 Elevated blood-pressure reading, without diagnosis of hypertension; E03.9 Hypothyroidism, unspecified
CPT/HCPCS: 36415; 80053; 83036; 84439; 84443

== ENCOUNTER 2021-08-13 13:57 | Outpatient (CLI) | payer MEDICARE, BC ==
[2021-08-13 14:26] LABS: BASOPHILS # (AUTO) 0.1 10^3/uL (0.0-0.1); EOSINOPHILS # (AUTO) 0.3 10^3/uL (0.0-0.7); EOSINOPHILS % (AUTO) 4.2 %; HCT - HEMATOCRIT 42.1 % (37.0-47.0); HGB - HEMOGLOBIN 13.6 g/dL (12.0-16.0); LYMPHOCYTES # (AUTO) 1.6 10^3/uL (1.5-3.5); LYMPHOCYTES % (AUTO) 25.1 %; MEAN CORPUSCULAR HEMOGLOBIN 28.6 pg (27.0-31.0); MEAN CORPUSCULAR HGB CONC 32.3 g/dL (32.0-36.0); MEAN CORPUSCULAR VOLUME 88.6 fL (81.0-99.0); MEAN PLATELET VOLUME 10.1 fL (7.9-10.8); MONOCYTES # (AUTO) 0.4 10^3/uL (0.0-1.0); MONOCYTES % (AUTO) 6.1 %; NEUTROPHILS % (AUTO) 63.4 %; PLT - PLATELET COUNT 280 10^3/uL (130-450); RED BLOOD COUNT 4.75 10^6/uL (4.20-5.40); RED CELL DISTRIBUTION WIDTH 13.4 % (12.0-15.0); WHITE BLOOD COUNT 6.3 x10^3/uL (4.8-10.8)
--- NOTE | 2021-08-15 15:37 | XRAY Report ---
PROCEDURE: Hip w/Pelvis 1V RT INDICATIONS: RIGHT HIP PAIN TECHNIQUE: AP pelvis with lateral view(s) of the right hip(s). COMPARISON: None. FINDINGS: Bones: No fractures or dislocations. Pelvic ring appears intact. No suspicious bony lesions. Bila teral [id number] symmetric hip and secretory N degeneration. Severe degenerative disc and facet disease at L5-S1. Soft tissues: The visualized bowel gas pattern is normal. No suspicious soft tissue calcifications. IMPRESSION: 1. 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 2. Severe degenerative disc and facet disease in lumbar spine. Reviewed by: Emelia Alvarado MD on 08/15/2021 3:36 PM PST Approved by: Emelia Alvarado MD on 08/15/2021 3:36 PM PST Station ID: [id number]
== END 2021-08-13 13:58 | disposition home or self-care (01) ==
LOC: LAB 13:57 → DI 13:58
PROVIDERS: ATTEND Internal Medicine
DX: M16.0 Bilateral primary osteoarthritis of hip (principal); M47.816 Spondylosis without myelopathy or radiculopathy, lumbar region; M51.36 Other intervertebral disc degeneration, lumbar region; E55.9 Vitamin D deficiency, unspecified; E53.8 Deficiency of other specified B group vitamins; R03.0 Elevated blood-pressure reading, without diagnosis of hypertension; M79.10 Myalgia, unspecified site; E03.9 Hypothyroidism, unspecified
CPT/HCPCS: 36415; 80053; 82306; 82607; 83036; 84443; 85025; 85651; 86140

== ENCOUNTER 2021-08-30 10:41 | Outpatient (CLI) | payer MEDICARE, BC ==
--- NOTE | 2021-08-31 08:35 | Mammography Report ---
BILATERAL DIGITAL SCREENING MAMMOGRAM 3D/2D WITH EXAGGERATED CC: 08/30/2021 CLINICAL: Routine screening. Family history of breast cancer. Baseline exam. No prior exams were available for comparison. The tissue of both breasts is heterogeneously dense. T his may lower the sensitivity of mammography. There are benign appering intramammary lymph nodes bilaterally. There is a focal asymmetry in the right breast at 2 o'clock anterior depth. There are grouped calcifications in the left breast central to the nipple middle depth. No other significant masses or calcifications are seen in either breast. IMPRESSION: INCOMPLETE: NEEDS ADDITIONAL IMAGING EVALUATION The focal asymmetry in the right breast at 2 o'clock anterior depth is indeterminate. Additional vie ws with possible ultrasound are recommended. The grouped calcifications in the le ft breast central to the nipple middle depth are indeterminate. Spot magnification views as well as additional views with possible ultrasound are recommended. This exam was interpreted at Station ID: [id number]. NOTE: For mammograms, a report in lay terms will be sent to the patient. Approximately 15% of breast malignancies will not be visualized mammographically. In the management of a palpable breast mass, a negative mammogram must not discourage biopsy of a clinically suspicious lesion. Electronically Signed By: Ingris Grier M.D. lk/:08/30/2021 11:56:08 ACR BI-RADS Category 0: Incomplete 3340F PARENCHYMAL PATTERN: (D) - The breast(s) demonstrate(s) heterogeneously dense fibroglandular parenchy ma. BI-RADS CATEGORY: (0) - 0 Mammo and [place] [id number] Immediate follow-up LATERALITY: (B)
== END 2021-08-30 10:42 | disposition home or self-care (01) ==
LOC: DI.S 10:41
DX: Z12.31 Encounter for screening mammogram for malignant neoplasm of breast (principal); Z80.3 Family history of malignant neoplasm of breast; R92.8 Other abnormal and inconclusive findings on diagnostic imaging of breast

== ENCOUNTER 2022-07-23 11:26 | Outpatient (CLI) | payer MEDICARE, BC ==
[2022-07-23 12:19] LABS: BASOPHILS % (AUTO) 0.9 %; EOSINOPHILS # (AUTO) 0.2 10^3/uL (0.0-0.7); EOSINOPHILS % (AUTO) 3.5 %; HCT - HEMATOCRIT 40.3 % (37.0-47.0); HGB - HEMOGLOBIN 13.1 g/dL (12.0-16.0); LYMPHOCYTES # (AUTO) 0.8 10^3/uL (1.5-3.5); LYMPHOCYTES % (AUTO) 16.7 %; MEAN CORPUSCULAR HEMOGLOBIN 28.9 pg (27.0-31.0); MEAN CORPUSCULAR HGB CONC 32.5 g/dL (32.0-36.0); MEAN PLATELET VOLUME 10.2 fL (7.9-10.8); MONOCYTES # (AUTO) 0.5 10^3/uL (0.0-1.0); MONOCYTES % (AUTO) 11.5 %; NEUTROPHILS # (AUTO) 3.1 10^3/uL (1.5-6.6); NEUTROPHILS % (AUTO) 67.2 %; PLT - PLATELET COUNT 232 10^3/uL (130-450); RED BLOOD COUNT 4.53 10^6/uL (4.20-5.40); RED CELL DISTRIBUTION WIDTH 12.9 % (12.0-15.0); WHITE BLOOD COUNT 4.6 x10^3/uL (4.8-10.8)
[2022-07-23 12:40] LABS: ESTIMATED AVERAGE GLUCOSE 117 mg/dL (70-100); HEMOGLOBIN A1c% 5.7 % (4.27-6.07)
[2022-07-23 12:46] LABS: THYROID STIMULATING HORMONE 1.04 uIU/mL (0.34-5.60)
[2022-07-23 12:51] LABS: ALBUMIN/GLOBULIN RATIO 1.1 (1.0-2.2); ALKALINE PHOSPHATASE 83 IU/L (42-121); ALT ALANINE AMINOTRANSFERASE 20 IU/L (10-60); AST ASPARTATE AMINOTRANSFERASE 19 IU/L (10-42); BILIRUBIN,TOTAL 0.7 mg/dL (0.2-1.0); BUN - BLOOD UREA NITROGEN 19 mg/dL (6-20); CALCIUM 9.4 mg/dL (8.5-10.3); CARBON DIOXIDE - CO2 24 mmol/L (21-32); CHLORIDE 106 mmol/L (101-111); CHOL/HDL RATIO 3.9 (<4.4); CHOLESTEROL 167 mg/dL; CREATININE 0.7 mg/dL (0.4-1.0); GFR - MDRD 83 (>89); GLUCOSE 95 mg/dL (70-100); HDL CHOLESTEROL 43 mg/dL; LDL CHOLESTEROL,CALCULATED 110 mg/dL; LDL/HDL RATIO 2.6 (<4.4); SODIUM 140 mmol/L (135-145); TOTAL PROTEIN 7.6 g/dL (6.7-8.2); TRIGLYCERIDES 68 mg/dL; VLDL CHOLESTEROL 14 mg/dL
== END 2022-07-23 11:27 | disposition home or self-care (01) ==
LOC: LAB 11:26
PROVIDERS: ATTEND Internal Medicine
DX: K76.0 Fatty (change of) liver, not elsewhere classified (principal); I77.9 Disorder of arteries and arterioles, unspecified; R73.01 Impaired fasting glucose; E03.9 Hypothyroidism, unspecified
CPT/HCPCS: 36415; 80053; 80061; 83036; 83721; 84443; 85025

== ENCOUNTER 2022-07-28 07:30 | Outpatient (CLI) | payer MEDICARE, BC ==
[2022-08-05 02:07] LABS: 5-HIAA URINE 1.8 mg/L (Undefined); 5-HIAA URINE 24HR 2.2 mg/24 hr (0.0-14.9)
== END 2022-07-28 07:31 | disposition home or self-care (01) ==
LOC: LAB.R 07:30
PROVIDERS: ATTEND Internal Medicine
DX: I10 Essential (primary) hypertension (principal); R23.2 Flushing
CPT/HCPCS: 81599; 82530; 83497; 83835; 84585

== ENCOUNTER 2022-07-29 19:15 | Outpatient (CLI) | payer MEDICARE, BC | END 2022-07-29 23:59 | disposition home or self-care (01) | LOC: LAB 19:15 | PROVIDERS: ATTEND Internal Medicine | DX: I10 Essential (primary) hypertension (principal); R23.2 Flushing | CPT/HCPCS: 81599; 82384; 82570 ==

== ENCOUNTER 2022-11-30 14:32 | Outpatient (CLI) | payer MEDICARE, BC ==
[2022-11-30 14:46] LABS: BASOPHILS # (AUTO) 0.1 10^3/uL (0.0-0.1); BASOPHILS % (AUTO) 0.8 %; EOSINOPHILS # (AUTO) 0.2 10^3/uL (0.0-0.7); EOSINOPHILS % (AUTO) 2.4 %; HCT - HEMATOCRIT 39.5 % (37.0-47.0); HGB - HEMOGLOBIN 12.9 g/dL (12.0-16.0); LYMPHOCYTES # (AUTO) 0.9 10^3/uL (1.5-3.5); LYMPHOCYTES % (AUTO) 14.3 %; MEAN CORPUSCULAR HEMOGLOBIN 28.7 pg (27.0-31.0); MEAN CORPUSCULAR HGB CONC 32.7 g/dL (32.0-36.0); MONOCYTES # (AUTO) 0.5 10^3/uL (0.0-1.0); MONOCYTES % (AUTO) 8.2 %; NEUTROPHILS # (AUTO) 4.9 10^3/uL (1.5-6.6); NEUTROPHILS % (AUTO) 74.1 %; PLT - PLATELET COUNT 230 10^3/uL (130-450); RED BLOOD COUNT 4.49 10^6/uL (4.20-5.40); RED CELL DISTRIBUTION WIDTH 13.8 % (12.0-15.0); WHITE BLOOD COUNT 6.6 x10^3/uL (4.8-10.8)
[2022-11-30 15:27] LABS: ALBUMIN/GLOBULIN RATIO 1.1 (1.0-2.2); ALKALINE PHOSPHATASE 78 IU/L (42-121); ALT ALANINE AMINOTRANSFERASE 20 IU/L (10-60); AST ASPARTATE AMINOTRANSFERASE 19 IU/L (10-42); BILIRUBIN,TOTAL 0.4 mg/dL (0.2-1.0); BUN - BLOOD UREA NITROGEN 19 mg/dL (6-20); CALCIUM 9.3 mg/dL (8.5-10.3); CARBON DIOXIDE - CO2 29 mmol/L (21-32); CHLORIDE 108 mmol/L (101-111); CHOL/HDL RATIO 3.6 (<4.4); CHOLESTEROL 169 mg/dL; CREATININE 0.7 mg/dL (0.4-1.0); GFR - MDRD 83 (>89); GLUCOSE 100 mg/dL (70-100); HDL CHOLESTEROL 47 mg/dL; LDL CHOLESTEROL,CALCULATED 95 mg/dL; POTASSIUM 3.8 mmol/L (3.5-5.0); SODIUM 142 mmol/L (135-145); TOTAL PROTEIN 7.5 g/dL (6.7-8.2); TRIGLYCERIDES 137 mg/dL; VLDL CHOLESTEROL 27 mg/dL
[2022-11-30 15:38] LABS: THYROID STIMULATING HORMONE 2.39 uIU/mL (0.34-5.60)
[2022-11-30 20:03] LABS: ESTIMATED AVERAGE GLUCOSE 117 mg/dL (70-100); HEMOGLOBIN A1c% 5.7 % (4.27-6.07)
== END 2022-11-30 14:33 | disposition home or self-care (01) ==
LOC: LAB 14:32
PROVIDERS: ATTEND Internal Medicine
DX: D05.12 Intraductal carcinoma in situ of left breast (principal); Z13.220 Encounter for screening for lipoid disorders; R73.01 Impaired fasting glucose; E03.9 Hypothyroidism, unspecified
CPT/HCPCS: 36415; 80053; 80061; 83036; 83721; 84443; 85025

== ENCOUNTER 2023-03-18 08:21 | Outpatient (CLI) | payer MEDICARE, BC ==
[2023-03-18 09:05] LABS: BASOPHILS # (AUTO) 0.1 10^3/uL (0.0-0.1); BASOPHILS % (AUTO) 1.1 %; EOSINOPHILS # (AUTO) 0.2 10^3/uL (0.0-0.7); EOSINOPHILS % (AUTO) 2.9 %; HCT - HEMATOCRIT 41.7 % (37.0-47.0); HGB - HEMOGLOBIN 13.3 g/dL (12.0-16.0); LYMPHOCYTES # (AUTO) 0.9 10^3/uL (1.5-3.5); LYMPHOCYTES % (AUTO) 15.5 %; MEAN CORPUSCULAR HEMOGLOBIN 28.8 pg (27.0-31.0); MEAN CORPUSCULAR HGB CONC 31.9 g/dL (32.0-36.0); MEAN CORPUSCULAR VOLUME 90.3 fL (81.0-99.0); MONOCYTES # (AUTO) 0.5 10^3/uL (0.0-1.0); MONOCYTES % (AUTO) 8.2 %; NEUTROPHILS # (AUTO) 3.9 10^3/uL (1.5-6.6); NEUTROPHILS % (AUTO) 72.1 %; PLT - PLATELET COUNT 232 10^3/uL (130-450); RED BLOOD COUNT 4.62 10^6/uL (4.20-5.40); RED CELL DISTRIBUTION WIDTH 13.5 % (12.0-15.0); WHITE BLOOD COUNT 5.5 x10^3/uL (4.8-10.8)
[2023-03-18 09:08] LABS: BILIRUBIN,URINE NEGATIVE (NEGATIVE); GLUCOSE, URINE (UA) NEGATIVE (NEGATIVE); KETONES,URINE (UA) NEGATIVE (NEGATIVE); LEUKOCYTE ESTERASE, URINE NEGATIVE (NEGATIVE); NITRITE,URINE NEGATIVE (NEGATIVE); OCCULT BLOOD,URINE NEGATIVE (NEGATIVE); PH,URINE 5.5 PH (5.0-7.5); PROTEIN,URINE NEGATIVE (NEGATIVE); UROBILINOGEN,URINE 0.2 (NORMAL) E.U./dL (NORMAL)
[2023-03-18 09:18] LABS: CALCIUM 9.6 mg/dL (8.5-10.3); CREATININE 0.7 mg/dL (0.6-1.3); POTASSIUM 4.2 mmol/L (3.5-4.5)
[2023-03-18 09:19] LABS: MICROALBUM/CREATININE RATIO,UR 7.2 ug/mg (<30.0); MICROALBUMIN,URINE 1.3 mg/dL
[2023-03-18 09:26] LABS: BACTERIA,URINE Rare /HPF (None Seen); CLARITY,URINE CLEAR (CLEAR); MUCUS,URINE Few Strands; RBC,URINE 0-5 /HPF (0-5); SQUAMOUS EPITHELIAL CELL,UR FEW Squamous (<= Few); WBC,URINE 0-3 /HPF (0-5)
--- NOTE | 2023-03-18 09:35 | XRAY Report ---
PROCEDURE: Hand 3 View BILAT INDICATIONS: ARTHRITIS,HAND TECHNIQUE: 3 views of the bilateral hand(s) acquired. COMPARISON: None. FINDINGS: Bones: No fractures or dislocations. No suspicious bony lesions. Mild interphalangeal joint degener ative changes. Moderate first carpal metacarpal joint degenerative changes. Soft tissues: No suspicious soft tissue calcifications or masses. IMPRESSION: Mild osteoarthritic changes of the interphalangeal joints and moderate of the first carpal metacarpal joints bilaterally. Reviewed by: Jeffrey Iyer MD on 03/18/2023 9:34 AM PDT Approved by: Jeffrey Iyer MD on 03/18/2023 9:34 AM PDT Station ID: [id number]
[2023-03-18 13:18] LABS: ESTIMATED AVERAGE GLUCOSE 111 mg/dL (70-100); HEMOGLOBIN A1c% 5.5 % (4.27-6.07)
== END 2023-03-18 08:22 | disposition home or self-care (01) ==
LOC: DI 08:21
PROVIDERS: ATTEND Internal Medicine
DX: M19.042 Primary osteoarthritis, left hand (principal); M19.041 Primary osteoarthritis, right hand; M18.0 Bilateral primary osteoarthritis of first carpometacarpal joints; R73.01 Impaired fasting glucose; R35.89 Other polyuria
CPT/HCPCS: 36415; 80048; 81001; 82043; 82570; 83036; 85025; 87086

== ENCOUNTER 2023-04-25 11:45 | Outpatient (CLI) | payer MEDICARE, BC ==
[2023-04-25 12:05] LABS: BILIRUBIN,URINE NEGATIVE (NEGATIVE); GLUCOSE, URINE (UA) 100 mg/dL (NEGATIVE); KETONES,URINE (UA) NEGATIVE (NEGATIVE); LEUKOCYTE ESTERASE, URINE TRACE (NEGATIVE); NITRITE,URINE POSITIVE (NEGATIVE); OCCULT BLOOD,URINE SMALL (NEGATIVE); PH,URINE 6.5 PH (5.0-7.5); PROTEIN,URINE 30 mg/dL (NEGATIVE); UROBILINOGEN,URINE 4 E.U./dL (NORMAL)
[2023-04-25 12:17] LABS: CLARITY,URINE CLEAR (CLEAR)
[2023-04-25 12:18] LABS: BACTERIA,URINE Few /HPF (None Seen); RBC,URINE 0-5 /HPF (0-5); SQUAMOUS EPITHELIAL CELL,UR FEW Squamous (<= Few); WBC CLUMPS,URINE PRESENT
== END 2023-04-25 11:46 | disposition home or self-care (01) ==
LOC: LAB 11:45
PROVIDERS: ATTEND Internal Medicine
DX: R30.0 Dysuria (principal)
CPT/HCPCS: 81001; 87077; 87086; 87181

== ENCOUNTER 2023-07-04 13:40 | Outpatient (CLI) | payer MEDICARE, BC ==
[2023-07-04 13:52] LABS: BILIRUBIN,URINE NEGATIVE (NEGATIVE); GLUCOSE, URINE (UA) NEGATIVE (NEGATIVE); KETONES,URINE (UA) NEGATIVE (NEGATIVE)
[2023-07-04 14:22] LABS: CLARITY,URINE SL. CLOUDY (CLEAR)
[2023-07-04 14:23] LABS: BACTERIA,URINE Few /HPF (None Seen); SQUAMOUS EPITHELIAL CELL,UR MOD Squamous (<= Few); WBC CLUMPS,URINE PRESENT
== END 2023-07-04 13:41 | disposition home or self-care (01) ==
LOC: LAB 13:40
PROVIDERS: ATTEND Internal Medicine
DX: R30.0 Dysuria (principal)
CPT/HCPCS: 81001; 87086

== ENCOUNTER 2023-08-11 12:05 | Outpatient (CLI) | payer MEDICARE, BC ==
[2023-08-11 12:19] LABS: BASOPHILS % (AUTO) 0.8 %; EOSINOPHILS # (AUTO) 0.2 10^3/uL (0.0-0.7); EOSINOPHILS % (AUTO) 3.8 %; HCT - HEMATOCRIT 39.8 % (37.0-47.0); HGB - HEMOGLOBIN 12.6 g/dL (12.0-16.0); LYMPHOCYTES % (AUTO) 21.5 %; MEAN CORPUSCULAR HEMOGLOBIN 28.7 pg (27.0-31.0); MEAN CORPUSCULAR HGB CONC 31.7 g/dL (32.0-36.0); MEAN CORPUSCULAR VOLUME 90.7 fL (81.0-99.0); MEAN PLATELET VOLUME 9.2 fL (7.9-10.8); MONOCYTES # (AUTO) 0.5 10^3/uL (0.0-1.0); MONOCYTES % (AUTO) 9.5 %; PLT - PLATELET COUNT 231 10^3/uL (130-450); RED BLOOD COUNT 4.39 10^6/uL (4.20-5.40); RED CELL DISTRIBUTION WIDTH 14.1 % (12.0-15.0); WHITE BLOOD COUNT 4.7 x10^3/uL (4.8-10.8)
[2023-08-11 12:40] LABS: % IRON SATURATION 19 % (20-50); ALBUMIN 4.1 g/dL (3.2-5.5); ALBUMIN/GLOBULIN RATIO 1.3 (1.0-2.2); ALKALINE PHOSPHATASE 98 IU/L (42-121); ALT ALANINE AMINOTRANSFERASE 43 IU/L (10-60); AST ASPARTATE AMINOTRANSFERASE 27 IU/L (10-42); BILIRUBIN,TOTAL 0.3 mg/dL (0.2-1.0); BUN - BLOOD UREA NITROGEN 14 mg/dL (6-20); CALCIUM 9.4 mg/dL (8.5-10.3); CARBON DIOXIDE - CO2 30 mmol/L (21-32); CHLORIDE 107 mmol/L (101-111); CHOLESTEROL 177 mg/dL; CREATININE 0.6 mg/dL (0.6-1.3); GFR - MDRD 99 (>89); GLUCOSE 100 mg/dL (74-104); HDL CHOLESTEROL 59 mg/dL; IRON 67 ug/dL (50-212); LDL CHOLESTEROL,CALCULATED 91 mg/dL; LDL/HDL RATIO 1.5 (<4.4); POTASSIUM 3.9 mmol/L (3.5-4.5); SODIUM 141 mmol/L (135-145); TOTAL IRON BINDING CAPACITY 351 ug/dL (250-450); TOTAL PROTEIN 7.3 g/dL (6.4-8.9); TRANSFERRIN 251 mg/dL (203-362); TRIGLYCERIDES 137 mg/dL (48-352); VLDL CHOLESTEROL 27 mg/dL
[2023-08-11 12:48] LABS: THYROID STIMULATING HORMONE 1.74 uIU/mL (0.34-5.60)
[2023-08-11 12:55] LABS: FERRITIN 67.4 ng/mL (11.0-306.8)
--- NOTE | 2023-08-11 15:54 | XRAY Report ---
PROCEDURE: Foot 3+V LT INDICATIONS: LEFT TOE PAIN TECHNIQUE: 3 views of the foot were acquired. COMPARISON: None. FINDINGS: Bones: Hallux valgus with bunion deformity noted. Plantar calcaneal spur present. Soft tissues: No radiographically evident soft tissue swelling IMPRESSION: Hallux valgus, bunion deformity Reviewed by: Justino Hudson MD on 08/11/2023 3:52 PM PST Approved by: Justino Hudson MD on 08/11/2023 3:52 PM PST Station ID: [id number]
== END 2023-08-11 12:06 | disposition home or self-care (01) ==
LOC: LAB 12:05
PROVIDERS: ATTEND Internal Medicine
DX: I10 Essential (primary) hypertension (principal); Z13.220 Encounter for screening for lipoid disorders; E55.9 Vitamin D deficiency, unspecified; E53.8 Deficiency of other specified B group vitamins; E03.9 Hypothyroidism, unspecified; M79.675 Pain in left toe(s); M20.12 Hallux valgus (acquired), left foot; M21.612 Bunion of left foot
CPT/HCPCS: 36415; 80053; 80061; 82306; 82607; 82728; 83540; 83721; 84443; 84466; 85025

== ENCOUNTER 2023-11-18 11:47 | Outpatient (CLI) | payer MEDICARE, BC ==
[2023-11-18 15:57] LABS: RHEUMATOID FACTOR NEGATIVE (Negative)
--- NOTE | 2023-11-20 00:49 | XRAY Report ---
PROCEDURE: Hand 3+V RT INDICATIONS: FINGER PAIN RIGHT TECHNIQUE: 3 views of the hand acquired. COMPARISON: Hand radiographs 03/18/2023. FINDINGS: Bones: No acute fractures or dislocations. No suspicious bony lesions. Moderate degenerative price ges of the 1st carpometacarpal joint. Mild scattered degenerative changes are seen in the interphalan geal joints of the fingers. Soft tissues: Mild soft tissue edema in the 3rd finger. IMPRESSION: Mild to moderate osteoarthrosis. Mild nonspecific edema in the middle finger. Reviewed by: Sukhdeep South MD on 11/20/2023 12:48 AM PDT Approved by: Sukhdeep South MD on 11/20/2023 12:48 AM PDT Station ID: [id number]
[2023-11-21 12:11] LABS: CYCLIC CITRULLINATED PEP IGG/A 10 units (0-19)
[2023-11-21 18:07] LABS: ANTINUCLEAR ANTIBODIES IFA Positive (.)
== END 2023-11-18 11:48 | disposition home or self-care (01) ==
LOC: DI 11:47
PROVIDERS: ATTEND Internal Medicine
DX: M19.041 Primary osteoarthritis, right hand (principal); M18.11 Unilateral primary osteoarthritis of first carpometacarpal joint, right hand; I73.00 Raynaud's syndrome without gangrene
CPT/HCPCS: 36415; 85651; 86038; 86140; 86200; 86430